=== PATIENT | female | born 1940 | race African-American/Black ===

== ENCOUNTER → 2017-01-06 | Outpatient (CLI) | payer MEDICARE, OTHER | LOC: OD 09:13 | PROVIDERS: ATTEND Podiatrist Foot Surgery | DX: M10.072 Idiopathic gout, left ankle and foot (principal) | CPT/HCPCS: 36415; 84550 ==

== ENCOUNTER → 2017-01-21 | Outpatient (CLI) | payer MEDICARE | LOC: OD 14:08 | PROVIDERS: ATTEND Podiatrist Foot Surgery | DX: M25.572 Pain in left ankle and joints of left foot (principal); M10.072 Idiopathic gout, left ankle and foot | CPT/HCPCS: 36415; 84550 ==